=== PATIENT | male | born 1975 | race American Indian/Alaskan Native ===

== ENCOUNTER 2020-05-07 19:41 | Emergency (ER) | payer SELFPAY ==
[2020-05-07 20:46] VITALS: BP 154/89
== END 2020-05-07 22:22 | disposition left against medical advice (07) ==
LOC: ED 19:41
DX: R68.84 Jaw pain (principal); Z53.21 Procedure and treatment not carried out due to patient leaving prior to being seen by health care provider

== ENCOUNTER 2020-05-10 21:53 | Emergency (ER) | payer SELFPAY | END 2020-05-10 22:10 | disposition left against medical advice (07) | LOC: ED 21:53 | DX: R68.84 Jaw pain (principal); Z53.21 Procedure and treatment not carried out due to patient leaving prior to being seen by health care provider ==